=== PATIENT | female | born 2000 | race Caucasian/White ===

== ENCOUNTER → 2020-10-01 | Outpatient (CLI) | payer OTHER ==
[~2020-10-01] MED LIST: PROHANCE 279.3MG/ML 15ML VIAL As Ordered ONE; PROHANCE 279.3MG/ML 5ML VIAL As Ordered ONE
--- NOTE | 2020-10-02 00:44 | REPVR ---
PROCEDURE INFORMATION: Exam: MR Head Without and With Contrast, Sella Exam date and time: 10/01/2020 6:40 PM Age: 19 years old Clinical indication: Elevated prolactin TECHNIQUE: Imaging protocol: MR of the head without and with intravenous contrast. Exam focused on the sella. Contrast material: PROHANCE; Contrast volume: 9 ml; Contrast route: INTRAVENOUS (IV); COMPARISON: No relevant prior studies available. FINDINGS: Brain: Normal appearance of the pituitary gland. The infundibulum is midline. Optic chiasm is normal. Cavernous sinuses are normal. No abnormal intracranial enhancement. No intracranial hemorrhage or extra-axial fluid collection. No evidence of mass effect or midline shift. No restricted diffusion to suggest acute infarct. Cerebral ventricles: Ventricles, cisterns, and sulci are normal. Bones/joints: Unremarkable. IMPRESSION: No acute intracranial findings. Electronically signed by: Sherwin Jiménez On 10/02/2020 00:43:52 AM
== END ==
LOC: M RAD 16:41
PROVIDERS: ATTEND Obstetrics & Gynecology
DX: E22.1 Hyperprolactinemia (principal)
CPT/HCPCS: 70553; A9576

== ENCOUNTER → 2020-10-26 | Outpatient (CLI) | payer OTHER ==
[~2020-10-26] MED LIST changes: +ISOVUE-370 76% 100ML VIAL As Ordered ONE; -PROHANCE 279.3MG/ML 15ML VIAL As Ordered ONE; -PROHANCE 279.3MG/ML 5ML VIAL As Ordered ONE
--- NOTE | 2020-10-26 19:35 | REP ---
INDICATION: INFERTILITY. COMPARISON: None. TECHNIQUE: The endometrium was cannulated and contrast was injected by the attending database analyst Dr. Lozano. Fluoroscopic spot films were acquired by ADDIE Eaton, under the direct supervision of Dr. Garcias. Images reviewed prior to dictation with Dr. Garcias. FINDINGS: Fluoroscopy spot radiographs document filling of a normal endometrial cavity. There is normal isthmic and ampullary fallopian tube opacification, there is definite tubal patency of the left. Due to the position of the fallopian tubes and the amount of contrast in the pelvis right tubal patency was not clearly visualized, however, right-sided patency is highly likely. IMPRESSION: Normal appearing uterus with definite left tubal patency. Right sided patency is highly likely as described above.. 0.5 minutes of fluoroscopy time was utilized for this procedure. Some fluoroscopic images are performed with last image hold technology. These images require no additional radiation. <Electronically signed by Noris Marrero > 10/26/20 [id number] <Electronically signed by Junito Garcias > 10/26/20 [id number]
== END ==
LOC: M RADPRO 12:12
PROVIDERS: ATTEND Obstetrics & Gynecology
DX: N97.9 Female infertility, unspecified (principal)
CPT/HCPCS: 58340; 74740; Q9967

== ENCOUNTER 2020-12-20 09:37 | Emergency (ER) | payer OTHER ==
[~2020-12-20] VITALS: Ht 162.6 cm; Wt 90.7 kg
[2020-12-20 11:40] LABS: BASO # 0.1 10^3/uL (0.0-0.2); BASO % 0.5 % (0.0-1.0); EOS # 0.2 10^3/uL (0.0-0.5); EOS % 1.6 % (0.0-3.0); HEMATOCRIT 41.2 % (36.0-47.0); HEMOGLOBIN 13.4 g/dl (12.0-15.5); MEAN CORPUSCULAR HEMOGLOBIN 30.5 pg (27.0-33.0); MEAN CORPUSCULAR HGB CONC 32.5 g/dl (32.0-36.5); MEAN CORPUSCULAR VOLUME 93.6 fl (80.0-96.0); MONO # 1.2 10^3/uL (0.0-0.8); MONO % 12.1 % (2.0-8.0); NEUTROPHILS # 5.4 10^3/uL (1.5-8.5); NEUTROPHILS % 54.5 % (36.0-66.0); PLATELET COUNT, AUTOMATED 403 10^3/uL (150-450); WHITE BLOOD COUNT 9.8 10^3/uL (4.0-10.0)
[2020-12-20 11:59] LABS: HCG, SERUM QUALITATIVE NEGATIVE (NEGATIVE)
[2020-12-20 12:00] LABS: ALBUMIN 3.6 GM/DL (3.2-5.2); ALT/SGPT 26 U/L (12-78); BILIRUBIN,DIRECT < 0.1 MG/DL (0.0-0.2); BILIRUBIN,TOTAL 0.3 MG/DL (0.2-1.0); BLOOD UREA NITROGEN 11 MG/DL (7-18); CALCIUM LEVEL 8.5 MG/DL (8.5-10.1); CARBON DIOXIDE LEVEL 29 MEQ/L (21-32); CHLORIDE LEVEL 107 MEQ/L (98-107); CREATININE FOR GFR 0.84 MG/DL (0.55-1.30); GLOMERULAR FILTRATION RATE > 60.0 (>60); GLUCOSE, FASTING 82 MG/DL (70-100); LIPASE 70 U/L (73-393); POTASSIUM SERUM 3.8 MEQ/L (3.5-5.1); SODIUM LEVEL 139 MEQ/L (136-145); TOTAL PROTEIN 7.9 GM/DL (6.4-8.2)
--- NOTE | 2020-12-20 13:29 | REP ---
INDICATION: bleeding post vaginal procedure. COMPARISON: None. TECHNIQUE: Transabdominal ultrasound evaluation of the pelvis was performed. FINDINGS: The anteverted uterus measures 8.2 x 4.0 x 3.6 cm. The endometrium measures 2 mm in thickness. The right ovary measures 4.0 x 1.9 x 1.5 cm, with a resistive index of 0.57. The left ovary measures 4.5 x 2.2 x 2.1 cm, with a resistive index of 0.67. There is no free fluid the pelvis. IMPRESSION: Normal transabdominal ultrasound evaluation of the pelvis. <Electronically signed by Aurelio Patterson > 12/20/20 [id number]
[2020-12-20] MEDS ORDERED: NITR-67 PO (13:35)
[2020-12-20] MEDS ORDERED: PYRI1TAB5 PO (13:36)
[2020-12-20 13:52] VITALS: BP 105/63
[2020-12-20] MEDS ORDERED: MACR100C43 PO (14:07)
[2020-12-20 14:27] LABS: GC DNA AMPLIFICATION NEGATIVE (NEGATIVE)
== END 2020-12-20 14:04 | disposition home or self-care (01) ==
LOC: M ED 09:37
DX: N93.9 Abnormal uterine and vaginal bleeding, unspecified (principal); N39.0 Urinary tract infection, site not specified; E28.2 Polycystic ovarian syndrome; Z98.890 Other specified postprocedural states

== ENCOUNTER → 2021-12-08 | Outpatient (REF) | payer OTHER ==
[~2021-12-08] MED LIST changes: -ISOVUE-370 76% 100ML VIAL As Ordered ONE; +MACR100C43 PO; +NITR-67 PO; +PYRI1TAB5 PO
== END ==
LOC: M WUC 16:24
PROVIDERS: ATTEND Physician Assistant
DX: N39.0 Urinary tract infection, site not specified (principal)

== ENCOUNTER → 2022-02-11 | Outpatient (CLI) | payer OTHER | LOC: M LAB 07:42 | PROVIDERS: ATTEND Nurse Practitioner Family | DX: E22.1 Hyperprolactinemia (principal) ==